=== PATIENT | female | born 1975 | race Caucasian/White ===

== ENCOUNTER 2017-10-03 18:03 | Emergency (ER) | payer BC ==
[2017-10-03 18:03] VITALS: BMI 27.4
[2017-10-03 18:13] VITALS: BP 126/85; PULSE 81; RESP 18; TEMP 98; O2SAT 100
[2017-10-03] MEDS ORDERED: Sodium Chloride 0.9% 1,000 ML IV STA (20:27)
--- NOTE | 2017-10-03 20:28 | ED PDOC ---
HPI: General Adult Time Seen by Provider: 10/03/17 20:08 Chief Complaint (Nursing): Abdominal Pain Chief Complaint (Provider): Abd pain and leg pain History Per: Patient History/Exam Limitations: no limitations Onset/Duration Of Symptoms: Days (1 month) Current Symptoms Are (Timing): Still Present Additional Complaint(s): Pt. with pain diffuse abd and leg cramps. Ongoing for months. Not new today. Had same for many years and went away after abd surgery for endometriosis. Pt. with no new injury. No chest pain, dyspnea, weakness, back pain, nausea, vomit , diarrhea. No numbness, tingles. No incontinence. No constipation. Past Medical History Reviewed: Nursing Documentation, Vital Signs Vital Signs: Last Vital Signs Temp 98 F 10/03/17 18:10 Pulse 81 10/03/17 18:10 Resp 18 10/03/17 18:10 BP 126/85 10/03/17 18:10 Pulse Ox 100 10/04/17 14:46 - Medical History PMH: Anemia, Gastritis, Gastrointestinal Ulcer, Chronic Pain (leg and abd) Denies: Depression, Chronic Kidney Disease - Surgical History Surgical History: Appendectomy (2014), Cholecystectomy - Family History Family History: States: Unknown Family Hx - Immunization History Hx Tetanus Toxoid Vaccination: Yes (2011) Hx Influenza Vaccination: No Hx Pneumococcal Vaccination: No - Home Medications Home Medications: Ambulatory Orders Medication Instructions Recorded Ondansetron ODT [Zofran ODT] 4 mg PO TID #12 odt 02/05/17 - Allergies Allergies/Adverse Reactions: Allergies Allergy/AdvReac Type Severity Reaction Status Date / Time No Known Allergies Allergy Verified 02/04/17 22:15 Review of Systems ROS Statement: Except As Marked, All Systems Reviewed And Found Negative Gastrointestinal: Positive for: Abdominal Pain Musculoskeletal: Positive for: Leg Pain Physical Exam - Reviewed Nursing Documentation Reviewed: Yes Vital Signs Reviewed: Yes - Physical Exam Appears: Positive for: Non-toxic, No Acute Distress Head Exam: Positive for: ATRAUMATIC, NORMAL INSPECTION, NORMOCEPHALIC Skin: Positive for: Normal Color, Warm, DRY Eye Exam: Positive for: EOMI, Normal appearance, PERRL ENT: Positive for: Normal ENT Inspection Neck: Positive for: Normal, Painless ROM Cardiovascular/Chest: Positive for: Regular Rate, Rhythm Respiratory: Positive for: CNT, Normal Breath Sounds Gastrointestinal/Abdominal: Positive for: Bowel Sounds, Soft, Tenderness (mild diffuse) Back: Positive for: Normal Inspection. Negative for: L CVA Tenderness, R CVA Tenderness Extremity: Positive for: Normal ROM, Tenderness (mild diffuse b/l). Negative for: Pedal Edema, Deformity, Swelling Neurologic/Psych: Positive for: Alert, Oriented - ECG O2 Sat by Pulse Oximetry: 100 Pulse Ox Interpretation: Normal - Progress ED Course And Treament: 1900: Pt. not in room. Last see was aaox3. Had capacity to make decisions and mother at bedside. Unable to find pt. Likely left prior to treatment complete. Was advised about pain protocol. Disposition - Clinical Impression Clinical Impression: Abdominal cramps, Leg pain - Patient ED Disposition Is Patient to be Admitted: No - Disposition Disposition: Left W/O Treatment Disposition Time: 19:00 Condition: STABLE
== END 2017-10-03 21:30 | disposition left against medical advice (07) ==
LOC: H.ER 18:03
DX: R10.9 Unspecified abdominal pain (principal); G89.29 Other chronic pain